=== PATIENT | female | born 1955 | race Caucasian/White ===

== ENCOUNTER → 2017-01-13 | Outpatient (CLI) | payer MEDICARE, BC ==
--- NOTE | 2017-01-14 13:59 | REP ---
LEFT LONG FINGER SERIES: Four views. HISTORY: Contusion. FINDINGS: Four views of the left long finger demonstrate a volar plate avulsion chip fracture nondisplaced, from the proximal end of the middle phalanx at the PIP joint. There is associated soft-tissue swelling. IMPRESSION: Volar plate fracture middle phalanx long finger at the PIP joint. Signed by Gt Rasheed MD 01/14/2017 03:05 P
--- NOTE | 2017-01-14 14:04 | REP ---
RIGHT WRIST SERIES: Four views. HISTORY: Contusion. FINDINGS: Four views of the right wrist demonstrate normal bones joints and soft tissues. No fracture or subluxation is seen. IMPRESSION: No fracture noted. Signed by Gt Rasheed MD 01/14/2017 03:06 P
--- NOTE | 2017-01-14 14:05 | REP ---
RIGHT ELBOW SERIES: Two views. HISTORY: Right elbow contusion. FINDINGS: Two lateral views of the right elbow are presented. There is an impacted nondisplaced fracture of the radial head and there is evidence of a hemarthrosis with positive fat pad sign. There is also mild danya olecranon soft tissue swelling. There is some coronoid process spurring. IMPRESSION: Incomplete exam with only two lateral views. Impacted fracture of the radial head intra-articular with hemarthrosis. Signed by Gt Rasheed MD 01/14/2017 03:06 P
== END ==
LOC: M ADAMS 08:36
PROVIDERS: ATTEND Physician Assistant
DX: S52.121A Displaced fracture of head of right radius, initial encounter for closed fracture (principal); S62.603A Fracture of unspecified phalanx of left middle finger, initial encounter for closed fracture; S50.01XA Contusion of right elbow, initial encounter; X58.XXXA Exposure to other specified factors, initial encounter; Y92.89 Other specified places as the place of occurrence of the external cause; Y93.89 Activity, other specified; Y99.8 Other external cause status